=== PATIENT | male | born 1950 | race Caucasian/White ===

== ENCOUNTER 2021-04-04 19:09 | Inpatient (IN) ==
[2021-04-04 20:23] LABS: Basophils # (auto) 0.01 K/uL (0-0.2); Basophils % (auto) 0.2 %; Eosinophils # (auto) 0.27 K/uL (0-0.5); Eosinophils % (auto) 5.1 %; Hemoglobin 14.7 g/dL (14.0-18.0); Immature Granulocytes # (auto) 0.02 K/uL (0.00-0.02); Immature Granulocytes % (auto) 0.4 %; Lymphocytes % (auto) 22.5 %; Mean Corpuscular Hemoglobin 29.9 pg (25-34); Mean Corpuscular Hgb Conc 33.4 g/dL (32-36); Mean Corpuscular Volume 89.6 fL (80-100); Mean Platelet Volume 10.3 fL (7.4-10.4); Monocytes % (auto) 9.4 %; Neutrophils # (auto) 3.34 K/uL (1.4-6.5); Neutrophils % (auto) 62.4 %; Platelet Count 204 K/uL (130-400); RDW Coefficient of Variation 12.9 % (11.5-14.5); RDW Standard Deviation 42.4 fL (36.4-46.3); Red Blood Count 4.91 M/uL (4.7-6.1); White Blood Count 5.34 K/uL (4.8-10.8)
--- NOTE | 2021-04-04 20:27 | CT Scan Report ---
CT head/brain wo con CLINICAL HISTORY: difficulties speaking dx w/ subarachnoid on 03/24 Technique: Contiguous axial CT images of the head were acquired from the base of the skull to the ean vandana without intravenous contrast administration. Images were viewed in brain, subdural and bone windo ws. Automated dose lowering techniques and/or adjustment according to patient size were utilized for this exam. Comparison: None available at the time of this dictation. Findings: There is intermediate density fluid about the bilateral cerebral convexities. No evidence of acute he morrhage is seen. Imaged portions of the paranasal sinuses and mastoid air cells are clear. The orbits appear normal. There are no acute fractures of the calvaria or scalp swelling. Impression: Intermediate density fluid about the bilateral cerebral convexities compatible with subacute subarach noid hemorrhage. ACT 112: Negative or not required by law. Electronically signed by: Brody Skinner M.D. 04/04/2021 8:25 PM
[2021-04-04 20:41] LABS: Partial Thromboplastin Ratio 0.8; Partial Thromboplastin Time 22.2 Seconds (21.0-31.0); Prothrombin Time 10.2 Seconds (9.0-12.0)
[2021-04-04 20:43] LABS: BUN Creatinine Ratio 27.2 (10-20); Creatinine Clr Calc Pharmacy 63.3 ml/min; Est GFR (African American) 73.3 ml/min; Est GFR (Non-African American) 63.2 ml/min; Potassium 4.2 mmol/L (3.5-5.1)
--- NOTE | 2021-04-04 20:46 | XRay Report ---
XR chest 1V portable CLINICAL HISTORY: confusion TECHNIQUE: Single frontal radiograph of the chest was obtained. Comparison: None available at the time of this dictation. FINDINGS: No lines and tubes are seen. The cardiomediastinal silhouette is normal. The lungs are clear. No evid ence of pleural effusion or pneumothorax. IMPRESSION: No acute chest disease. ACT 112: Negative or not required by law. Electronically signed by: Brody Skinner M.D. 04/04/2021 8:45 PM
[2021-04-04 20:53] LABS: Appearance Urine Clear (Clear); Bacteria Urine Automated Negative (Negative); Bilirubin Urine Negative (Negative); Blood Urine Negative (Negative); Color Urine Yellow; Epithelial Cell Urine Auto >30 /lpf (0-5); Glucose Urine UA Negative (Negative); Ketones Urine Negative (Negative); Leukocyte Esterase Urine Negative (Negative); Nitrite Urine Negative (Negative); Protein Urine Trace (Negative); RBC Urine Automated 0-4 /hpf (0-4); Specific Gravity Urine 1.025 (1.000-1.030); Urobilinogen Urine Negative (Negative); pH Urine 6.5 (4.5-7.5)
[2021-04-04] MEDS ORDERED: SODIUM CHLORIDE 0.9% 1000ML 1,000 ML IV STA (21:18)
--- NOTE | 2021-04-04 21:51 | Emergency Department Note ---
History of Present Illness General Chief complaint: Neuro Symptoms/Deficit Stated complaint: NOT HAVING ANY RECALL,MEMORY ISSUES,BLOOD IN BRAIN Time Seen by Provider: 04/04/21 19:51 History of Present Illness Provider complaint: Difficulty speaking confusion Onset (ago): day(s) 1 Maximum Pain Intensity: 0 70-year-old male presents emergency department with for difficulty speaking. reports that the patient has been having difficulty speaking for the last day. Patient's states that he was recently in the hospital in [place] after he suffered a fall and was diagnosed with a brain bleed. She reports no new falls. She reports no fevers. No headaches. No abdominal pain. No chest pain or difficulty breathing. reports that the patient was on Xarelto before he fell and is no longer taking the Xarelto since he was discharged from the hospital in [place] at the beginning of the month. reports she spoke with her PCP at [facility] today Dr. Adrián Gallardo who recommended that the patient come to the emergency department. Home Medications Medication Instructions Recorded Confirmed Type atorvastatin 40 mg tablet 0 mg PO DAILY 04/04/21 04/04/21 History gabapentin 300 mg capsule 0 mg PO DAILY 04/04/21 04/04/21 History levetiracetam 1,000 mg tablet 1,000 mg PO BID 04/04/21 04/04/21 History magnesium oxide 400 mg PO DAILY 04/04/21 04/04/21 History metoprolol succinate 25 mg 25 mg PO DAILY 04/04/21 04/04/21 History tablet,extended release 24 hr relugolix 120 mg tablet 120 mg PO DAILY 04/04/21 04/04/21 History rivaroxaban 20 mg tablet (Xarelto) 20 mg PO DAILY 04/04/21 04/04/21 History vitamin B12 0.5 mg-folic acid 1 mg 1 tab PO DAILY 04/04/21 04/04/21 History tablet Allergies Allergy/AdvReac Type Severity Reaction Status Date / Time adhesive tape Allergy Rash Unverified 04/04/21 21:05 Past Med/Surg History Medical History (Updated 04/04/21 @ 21:51 by Rene Morris) CKD (chronic kidney disease) DVT (deep venous thrombosis) HTN (hypertension) Hyperlipidemia Paroxysmal atrial fibrillation Prostate cancer Seizure Surgical History (Updated 04/04/21 @ 21:44 by Rene Morris) History of tonsillectomy S/P cholecystectomy Family History (Updated 04/04/21 @ 21:44 by Rene Morris) Other Heart disease Social History Smoking Status: Never smoker Feels Safe at Home: Yes Review of Systems A total of 10 systems reviewed and were otherwise negative Physical Exam Vital Signs Vital Signs - 24 hr 04/04/21 19:26 04/04/21 19:45 04/04/21 20:01 Temperature 36.9 C Temperature Source Temporal Artery Scan Pulse Rate 94 H 75 Pulse Rate [Radial] 75 74 Pulse Rhythm Regular Pulse Rhythm [Radial] Regular Regular Pulse Strength [Radial] Normal Normal Respiratory Rate 16 16 16 Respiratory Effort / Characteristics Non-Labored Spontaneous Non-Labored Respiratory Depth Normal Respiratory Pattern Regular Regular Blood Pressure [Right Arm] 154/97 H 146/80 H Blood Pressure Mean [Right Arm] 116 102 Blood Pressure Position [Right Arm] Semi-fowlers Semi-fowlers Pulse Oximetry 95 97 98 Oxygen Delivery Method Room Air Room Air Room Air Sepsis Recent Fever Within 48 Hours No Sepsis New/Unexplained Change in Mental Status No Sepsis Action Taken by Nursing No Action Required 04/04/21 20:41 Temperature Temperature Source Pulse Rate Pulse Rate [Radial] 80 Pulse Rhythm Pulse Rhythm [Radial] Regular Pulse Strength [Radial] Normal Respiratory Rate 16 Respiratory Effort / Characteristics Non-Labored Spontaneous Respiratory Depth Normal Respiratory Pattern Blood Pressure [Right Arm] 148/93 H Blood Pressure Mean [Right Arm] 111 Blood Pressure Position [Right Arm] Semi-fowlers Pulse Oximetry 98 Oxygen Delivery Method Room Air Sepsis Recent Fever Within 48 Hours Sepsis New/Unexplained Change in Mental Status Sepsis Action Taken by Nursing Physical Exam GENERAL: He is oriented to person, place, and time. He appears well-developed and well-nourished. He does not appear distressed. HENT: Exam performed. - Head: Normocephalic and atraumatic. - Right Ear: External ear normal. No mastoid tenderness. - Left Ear: External ear normal. No mastoid tenderness. - Mouth/Throat: The oropharynx is clear and moist. No trismus in the jaw. No dental abscesses or uvula swelling. No oropharyngeal exudate or tonsillar abscesses. EYES: Conjunctivae and EOM are normal. Pupils are equal, round, and reactive to light. Right eye exhibits no discharge. Left eye exhibits no discharge. No scleral icterus. NECK: Normal range of motion. Neck supple. No JVD present. No spinous process tenderness present. No carotid bruit present. No rigidity. No tracheal deviation and normal range of motion present. No Brudzinski's sign and no Kernig's sign noted. CV: Normal rate, regular rhythm, normal heart sounds and intact distal pulses. There is no peripheral edema. Palpable radial pulses bue. PULM/CHEST: Effort normal and breath sounds normal. No respiratory distress. No stridor. He has no wheezes. He has no rales. - Chest Wall: He exhibits no tenderness. ABD: The abdomen is soft. Bowel sounds are normal. He has no distension. No mass is present. There is no tenderness. There is no rebound, no guarding, no Tripathi's sign and no tenderness at McBurney's point. Rovsig negative. MUSC/SKEL: Normal range of motion. There is no peripheral edema, tenderness or deformity. LYMPH: No cervical adenopathy. NEURO: NIHSS: 1 (mild aphasia) SKIN: Skin is warm and dry. He is not diaphoretic. PSYCH: He has a normal mood and affect. Behavior is normal. Judgment and thought content normal. Course Course 1950: The patient was evaluated in room A1. A complete history and physical exam was performed Cardiac monitoring: An order was placed for continuous cardiac monitoring. The monitor shows a rate of 80 with sinusrhythm 2044: Maria Guadalupe house manager was able to access the records from [facility] Patient was seen at [facility] in [facility]. Patient had CAT scan imaging done on March 24 and March 25, 2021. CAT scan of the head done on March 25, 2021 showed a left frontal subdural hemorrhage extending into the left parietal region with 3.2 mm in its greatest with no midline shift. There is minimal left frontal parietal subarachnoid blood which was improved from a CT scan done on March 24, 2021. The CT scan was read at 7:[address] Brumfield. 2100: Vital signs stable. Labs within normal limits. Patient continues to have extremely mild expressive aphasia with no other focal neurological deficits. I contacted radiology Dr. Brody muhammad and discussed with him the CT report from March 25, 2021 and he said the CT scan today with this information is basically the same with its maximal diameter today of about 3 mm. Labs are within normal limits. I did discuss the case with neurology [facility] Dr. Sarkar who states she is worried that the patient could have had a small stroke given his expressive aphasia and recommends that the patient be admitted for to evaluate in the morning and for the patient have an MRI done. and patient are in agreement. Will discuss with [facility] hospitalist Dr. Quintanilla for a dmission. Medical Decision Making Laboratory Data Result diagrams: 04/04/21 19:40 04/04/21 19:40 Lab Results 04/04/21 04/04/21 04/04/21 Range/Units 19:40 19:40 19:40 WBC 5.34 (4.8-10.8) K/uL RBC 4.91 (4.7-6.1) M/uL Hgb 14.7 (14.0-18.0) g/dL Hct 44.0 (42-52) % MCV 89.6 (80-100) fL MCH 29.9 (25-34) pg MCHC 33.4 (32-36) g/dL RDW Std Deviation 42.4 (36.4-46.3) fL RDW Coeff of Valentino 12.9 (11.5-14.5) % Plt Count 204 (130-400) K/uL MPV 10.3 (7.4-10.4) fL Immature Gran % (Auto) 0.4 % Neut % (Auto) 62.4 % Lymph % (Auto) 22.5 % Valley % (Auto) 9.4 % Eos % (Auto) 5.1 % Baso % (Auto) 0.2 % Neut # (Auto) 3.34 (1.4-6.5) K/uL Lymph # (Auto) 1.20 (1.2-3.4) K/uL Valley # (Auto) 0.50 (0.11-0.59) K/uL Eos # (Auto) 0.27 (0-0.5) K/uL Baso # (Auto) 0.01 (0-0.2) K/uL Immature Gran # (Auto) 0.02 (0.00-0.02) K/uL PT 10.2 (9.0-12.0) Seconds INR 1.0 (0.9-1.1) APTT 22.2 (21.0-31.0) Seconds PTT Ratio 0.8 Sodium 139 (136-145) mmol/L Potassium 4.2 (3.5-5.1) mmol/L Chloride 103 (98-107) mmol/L Carbon Dioxide 30 (21-32) mmol/L Anion Gap 6.0 (3-11) BUN 31 H (7-18) mg/dl Creatinine 1.15 (0.6-1.4) mg/dl Est Cr Clr Drug Dosing 63.3 ml/min Est GFR ( Amer) 73.3 ml/min Est GFR (Non-Af Amer) 63.2 ml/min BUN/Creatinine Ratio 27.2 H (10-20) Glucose 155 H (70-99) mg/dl POC Glucose (70-99) mg/dl Calcium 9.0 (8.5-10.1) mg/dl Urine Color Urine Appearance (Clear) Urine pH (4.5-7.5) Ur Specific [place] (1.000-1.030) Urine Protein (Negative) Urine Glucose (UA) (Negative) Urine Ketones (Negative) Urine Blood (Negative) Urine Nitrite (Negative) Urine Bilirubin (Negative) Urine Urobilinogen (Negative) Ur Leukocyte Esterase (Negative) Urine WBC (Auto) (0-5) /hpf Urine RBC (Auto) (0-4) /hpf U Hyaline Cast (Auto) (0-5) /lpf U Epithel Cells (Auto) (0-5) /lpf Urine Bacteria (Auto) (Negative) 04/04/21 04/04/21 Range/Units 20:09 20:30 WBC (4.8-10.8) K/uL RBC (4.7-6.1) M/uL Hgb (14.0-18.0) g/dL Hct (42-52) % MCV (80-100) fL MCH (25-34) pg MCHC (32-36) g/dL RDW Std Deviation (36.4-46.3) fL RDW Coeff of Valentino (11.5-14.5) % Plt Count (130-400) K/uL MPV (7.4-10.4) fL Immature Gran % (Auto) % Neut % (Auto) % Lymph % (Auto) % Valley % (Auto) % Eos % (Auto) % Baso % (Auto) % Neut # (Auto) (1.4-6.5) K/uL Lymph # (Auto) (1.2-3.4) K/uL Valley # (Auto) (0.11-0.59) K/uL Eos # (Auto) (0-0.5) K/uL Baso # (Auto) (0-0.2) K/uL Immature Gran # (Auto) (0.00-0.02) K/uL PT (9.0-12.0) Seconds INR (0.9-1.1) APTT (21.0-31.0) Seconds PTT Ratio Sodium (136-145) mmol/L Potassium (3.5-5.1) mmol/L Chloride (98-107) mmol/L Carbon Dioxide (21-32) mmol/L Anion Gap (3-11) BUN (7-18) mg/dl Creatinine (0.6-1.4) mg/dl Est Cr Clr Drug Dosing ml/min Est GFR ( Amer) ml/min Est GFR (Non-Af Amer) ml/min BUN/Creatinine Ratio (10-20) Glucose (70-99) mg/dl POC Glucose 132 H (70-99) mg/dl Calcium (8.5-10.1) mg/dl Urine Color Yellow Urine Appearance Clear (Clear) Urine pH 6.5 (4.5-7.5) Ur Specific [place] 1.025 (1.000-1.030) Urine Protein Trace H (Negative) Urine Glucose (UA) Negative (Negative) Urine Ketones Negative (Negative) Urine Blood Negative (Negative) Urine Nitrite Negative (Negative) Urine Bilirubin Negative (Negative) Urine Urobilinogen Negative (Negative) Ur Leukocyte Esterase Negative (Negative) Urine WBC (Auto) 1-5 (0-5) /hpf Urine RBC (Auto) 0-4 (0-4) /hpf U Hyaline Cast (Auto) 1-5 (0-5) /lpf U Epithel Cells (Auto) >30 H (0-5) /lpf Urine Bacteria (Auto) Negative (Negative) Imaging Data Radiologist's Impression: Head CT 04/04/21 20:01 CT head/brain wo con CLINICAL HISTORY: difficulties speaking dx w/ subarachnoid on 03/24 Technique: Contiguous axial CT images of the head were acquired from the base of the skull to the vertex without intravenous contrast administration. Images were viewed in brain, subdural and bone windows. Automated dose lowering techniques and/or adjustment according to patient size were utilized for this exam. Comparison: None available at the time of this dictation. Findings: There is intermediate density fluid about the bilateral cerebral convexities. No evidence of acute hemorrhage is seen. Imaged portions of the paranasal sinuses and mastoid air cells are clear. The orbits appear normal. There are no acute fractures of the calvaria or scalp swelling. Impression: Intermediate density fluid about the bilateral cerebral convexities compatible with subacute subarachnoid hemorrhage. ACT 112: Negative or not required by law. Electronically signed by: Brody Skinner M.D. 04/04/2021 8:25 PM Chest X-Ray 04/04/21 20:02 XR chest 1V portable CLINICAL HISTORY: confusion TECHNIQUE: Single frontal radiograph of the chest was obtained. Comparison: None available at the time of this dictation. FINDINGS: No lines and tubes are seen. The cardiomediastinal silhouette is normal. The lungs are clear. No evidence of pleural effusion or pneumothorax. IMPRESSION: No acute chest disease. ACT 112: Negative or not required by law. Electronically signed by: Brody Skinner M.D. 04/04/2021 8:45 PM ECG Data Indication: + weakness Rate (beats per minute): 79 Rhythm: + normal sinus ECG Intervals/blocks: + First degree AV block, + Right Bundle branch block, + Normal QRS and + Normal QT-c ECG ST segments: + Normal ST segments [facility] Narrative 1950: The patient was evaluated in room A1. A complete history and physical exam was performed Cardiac monitoring: An order was placed for continuous cardiac monitoring. The monitor shows a rate of 80 with sinusrhythm 2044: Maria Guadalupe house manager was able to access the records from [facility] Patient was seen at [facility] in [facility]. Patient had CAT scan imaging done on March 24 and March 25, 2021. CAT scan of the head done on March 25, 2021 showed a left frontal subdural hemorrhage extending into the left parietal region with 3.2 mm in its greatest with no midline shift. There is minimal left frontal parietal subarachnoid blood which was improved from a CT scan done on March 24, 2021. The CT scan was read at 7:[address] Brumfield. 2100: Vital signs stable. Labs within normal limits. Patient continues to have extremely mild expressive aphasia with no other focal neurological deficits. I contacted radiology Dr. Skinner radiology and discussed with him the CT report from March 25, 2021 and he said the CT scan today with this information is basically the same with its maximal diameter today of about 3 mm. Labs are within normal limits. I [facility] who states she is worried that the patient could have had a small stroke given his expressive aphasia and recommends that the patient be admitted for to evaluate in the morning and for the patient have an MRI done. and patient are in agreement. Will discuss with [facility] hospitalist Dr. Quintanilla for admission. Impression & Plan Expressive aphasia Discharge Plan Visit Data Chief Complaint: Neuro Symptoms/Deficit Stated Complaint: NOT HAVING ANY RECALL,MEMORY ISSUES,BLOOD IN BRAIN Discharge Problem: Expressive aphasia Patient Disposition: Admitted As Inpatient Forms Stand Alone Forms: My [facility] Prescriptions Prescriptions: No Action atorvastatin 40 mg tablet 0 mg PO DAILY RF: 0 levetiracetam 1,000 mg tablet 1,000 mg PO BID RF: 0 gabapentin 300 mg capsule 0 mg PO DAILY RF: 0 Xarelto 20 mg tablet 20 mg PO DAILY RF: 0 magnesium oxide 400 mg magnesium tablet 400 mg PO DAILY RF: 0 metoprolol succinate 25 mg tablet extended release 24 hr 25 mg PO DAILY RF: 0 vitamin Y83-digte acid 0.5-1 mg Tablet 1 tab PO DAILY RF: 0 relugolix 120 mg Tablet 120 mg PO DAILY RF: 0 Referrals Referrals: Taylor Live MD [Primary Care Provider] -
[2021-04-04 21:57] LABS: Albumin Level 3.4 gm/dl (3.4-5.0); Bilirubin Direct 0.2 mg/dl (0-0.2); Bilirubin,Total 0.7 mg/dl (0.2-1); Magnesium 2.5 mg/dl (1.8-2.4); Thyroid Stimulating Hormone 2.43 uIu/ml (0.300-4.500)
--- NOTE | 2021-04-04 22:59 | History & Physical Report ---
Date of Service April 04, 2021 Assessment & Plan (1) Expressive aphasia: Plan: Recent traumatic ICH Rule out new CVA hx TIA as per records hx PAF, anticoagulation currently on hold following recent traumatic intracranial hemorrhage hypertension, secondary to above Hyperlipidemia on statin Rx seizure disorder secondary to cerebral venous sinus thrombosis as per records, well-controlled as per patient hx DVT as per records prostatic cancer status post surgery on Relugolix prediabetes, hemoglobin A1c of 21 February 2021 OBS Medical telemetry Neurochecks Neurology consult Re: Worsening aphasia (ER provider already in touch with Dr. Sarkar who recommends MRI study to rule out ischemic/embolic stroke) MRI/MRA of the brain Additional stroke work-up pending MRI results Permissive hypertension until acute stroke ruled out DVT prophylaxis. SCDs Re: Recent ICH Full code Patient's requesting update providers. Hali Archer, contact #[phone]. Text document was generated using [employer] voice recognition software. It may contain grammatical or spelling errors. Kindly contact undersigned for clarification of any documentation item in question. History of Present Illness Chief Complaint: Worsening difficulty with speaking Primary Care Provider: Dr. Borjas History obtained from patient and records. Medical history significant for hypertension, PAF currently not on anticoagulation due to recent traumatic subdural hematoma/SAH, seizure disorder secondary to cerebral venous sinus thrombosis as per records, history of DVT as per records, prostatic cancer status post surgery on Relugolix, prediabetes. Patient confined at [facility] in [place], [place] from March 24-2020 for traumatic intraparenchymal hemorrhage, left posterior parietal subarachnoid hemorrhage, left frontal parietal subdural hematoma. Patient on Eliquis for A. fib at time of injury. Patient visiting [place] that time for a football game. No neurosurgical intervention. Post injury, patient noted trouble getting words out. No arm or leg weakness as per patient. Repeat CT head recommended after 1 week. PCP may resume patient anticoagulation for A. fib if ICH stable on repeat CT head as per discharge documentation. Patient seen at PCPs office on follow-up visit 2 days ago. Outpatient Neurology referral contemplated. Today, patient had worsening trouble getting words out. Patient denies headache symptoms. No chest pain, no S OB. Patient directed to ER by PCP. Medical History as above Surgical History : Cataract surgery, cholecystostomy, prostatectomy, tonsillectomy, vasectomy Family History : Heart disease Personal/Social history : Non-smoker, occasional EtOH intake, retired fund accountant Allergies Allergy/AdvReac Type Severity Reaction Status Date / Time adhesive tape Allergy Rash Unverified 04/04/21 21:05 Home Medications Medication Instructions Recorded Confirmed Type atorvastatin 40 mg tablet 40 mg PO [id number] 04/04/21 04/04/21 History calcium carbonate 600 mg (1,500 1 tab PO DAILY 04/04/21 04/04/21 History mg)-vitamin D3 200 unit tablet gabapentin 300 mg capsule 300 mg PO AMPM 04/04/21 04/04/21 History levetiracetam 1,000 mg tablet 1,000 mg PO BID 04/04/21 04/04/21 History magnesium oxide 400 mg PO DAILY 04/04/21 04/04/21 History metoprolol succinate 25 mg 25 mg PO DAILY 04/04/21 04/04/21 History tablet,extended release 24 hr relugolix 120 mg tablet 120 mg PO DAILY 04/04/21 04/04/21 History vitamin B12 0.5 mg-folic acid 1 mg 1 tab PO DAILY 04/04/21 04/04/21 History tablet Past Med/Surg History Medical History (Updated 04/04/21 @ 21:51 by Rene Morris) CKD (chronic kidney disease) DVT (deep venous thrombosis) HTN (hypertension) Hyperlipidemia Paroxysmal atrial fibrillation Prostate cancer Seizure Surgical History (Updated 04/04/21 @ 21:44 by Rene Morris) History of tonsillectomy S/P cholecystectomy Family History (Updated 04/04/21 @ 21:44 by Rene Morris) Other Heart disease Social History Smoking Status: Never smoker Hx Alcohol Use: Yes Hx Substance Use: No Preferred Language: Palauan Communication Ability: Impaired Water Analyst Required: Yes Beliefs That Will Affect Care: None Current Living Situation: Spouse Feels Safe at Home: Yes Safety Concerns: Feels Safe At This Time Assistive Devices: Cane and Hearing Aid - Bilateral Review of Systems Review of Systems: As per HPI, all 10 systems reviewed, all other ROS negative Physical Exam Physical Exam: GENERAL: Comfortable, pleasant, intermittent pauses during speech to find words, no respiratory distress SKIN: Normal color, warm HEENT: [place] palpebral conjunctivae, no ptosis, dry buccal mucosa NECK : Supple, no tenderness CHEST : CTA, no tenderness HEART : RRR, no obvious murmurs ABDOMEN: Some distention, nontender EXTREMITIES : No LE swelling/tenderness, no other conspicuous deformities noted NEUROLOGIC : Coherent, word finding difficulty during speech, no facial asymmetry, no other gross focality Results & Data Results & Data ([facility]) Vital Signs (Past 12 Hours) Vital Signs Temp Pulse Pulse Resp BP Pulse Ox 04/04/21 22:00 70 16 164/88 H 97 04/04/21 20:41 80 16 148/93 H 98 04/04/21 20:01 74 16 146/80 H 98 04/04/21 19:45 75 75 16 154/97 H 97 04/04/21 19:26 36.9 C 94 H 16 95 Laboratory Results Laboratory Results WBC 5.34 K/uL (4.8-10.8) 04/04/21 19:40 RBC 4.91 M/uL (4.7-6.1) 04/04/21 19:40 Hgb 14.7 g/dL (14.0-18.0) 04/04/21 19:40 Hct 44.0 % (42-52) 04/04/21 19:40 MCV 89.6 fL (80-100) 04/04/21 19:40 MCH 29.9 pg (25-34) 04/04/21 19:40 MCHC 33.4 g/dL (32-36) 04/04/21 19:40 RDW Std Deviation 42.4 fL (36.4-46.3) 04/04/21 19:40 RDW Coeff of Valentino 12.9 % (11.5-14.5) 04/04/21 19:40 Plt Count 204 K/uL (130-400) 04/04/21 19:40 MPV 10.3 fL (7.4-10.4) 04/04/21 19:40 Immature Gran % (Auto) 0.4 % 04/04/21 19:40 Neut % (Auto) 62.4 % 04/04/21 19:40 Lymph % (Auto) 22.5 % 04/04/21 19:40 [place] % (Auto) 9.4 % 04/04/21 19:40 Eos % (Auto) 5.1 % 04/04/21 19:40 Baso % (Auto) 0.2 % 04/04/21 19:40 Neut # (Auto) 3.34 K/uL (1.4-6.5) 04/04/21 19:40 Lymph # (Auto) 1.20 K/uL (1.2-3.4) 04/04/21 19:40 [place] # (Auto) 0.50 K/uL (0.11-0.59) 04/04/21 19:40 Eos # (Auto) 0.27 K/uL (0-0.5) 04/04/21 19:40 Baso # (Auto) 0.01 K/uL (0-0.2) 04/04/21 19:40 Immature Gran # (Auto) 0.02 K/uL (0.00-0.02) 04/04/21 19:40 PT 10.2 Seconds (9.0-12.0) 04/04/21 19:40 INR 1.0 (0.9-1.1) 04/04/21 19:40 APTT 22.2 Seconds (21.0-31.0) 04/04/21 19:40 PTT Ratio 0.8 04/04/21 19:40 Sodium 139 mmol/L (136-145) 04/04/21 19:40 Potassium 4.2 mmol/L (3.5-5.1) 04/04/21 19:40 Chloride 103 mmol/L (98-107) 04/04/21 19:40 Carbon Dioxide 30 mmol/L (21-32) 04/04/21 19:40 Anion Gap 6.0 (3-11) 04/04/21 19:40 BUN 31 mg/dl (7-18) H 04/04/21 19:40 Creatinine 1.15 mg/dl (0.6-1.4) 04/04/21 19:40 Est Cr Clr Drug Dosing 63.3 ml/min 04/04/21 19:40 Est GFR ( Amer) 73.3 ml/min 04/04/21 19:40 Est GFR (Non-Af Amer) 63.2 ml/min 04/04/21 19:40 BUN/Creatinine Ratio 27.2 (10-20) H 04/04/21 19:40 Glucose 155 mg/dl (70-99) H 04/04/21 19:40 POC Glucose 132 mg/dl (70-99) H 04/04/21 20:09 Calcium 9.0 mg/dl (8.5-10.1) 04/04/21 19:40 Magnesium 2.5 mg/dl (1.8-2.4) H 04/04/21 19:40 Total Bilirubin 0.7 mg/dl (0.2-1) 04/04/21 19:40 Direct Bilirubin 0.2 mg/dl (0-0.2) 04/04/21 19:40 AST 23 U/L (15-37) 04/04/21 19:40 ALT 33 U/L (12-78) 04/04/21 19:40 Alkaline Phosphatase 87 U/L (45-117) 04/04/21 19:40 Total Protein 7.0 gm/dl (6.4-8.2) 04/04/21 19:40 Albumin 3.4 gm/dl (3.4-5.0) 04/04/21 19:40 TSH 2.430 uIu/ml (0.300-4.500) 04/04/21 19:40 Urine Color Yellow 04/04/21 20:30 Urine Appearance Clear (Clear) 04/04/21 20:30 Urine pH 6.5 (4.5-7.5) 04/04/21 20:30 Ur Specific [place] 1.025 (1.000-1.030) 04/04/21 20:30 Urine Protein Trace (Negative) H 04/04/21 20:30 Urine Glucose (UA) Negative (Negative) 04/04/21 20:30 Urine Ketones Negative (Negative) 04/04/21 20:30 Urine Blood Negative (Negative) 04/04/21 20:30 Urine Nitrite Negative (Negative) 04/04/21 20:30 Urine Bilirubin Negative (Negative) 04/04/21 20:30 Urine Urobilinogen Negative (Negative) 04/04/21 20:30 Ur Leukocyte Esterase Negative (Negative) 04/04/21 20:30 Urine WBC (Auto) 1-5 /hpf (0-5) 04/04/21 20:30 Urine RBC (Auto) 0-4 /hpf (0-4) 04/04/21 20:30 U Hyaline Cast (Auto) 1-5 /lpf (0-5) 04/04/21 20:30 U Epithel Cells (Auto) >30 /lpf (0-5) H 04/04/21 20:30 Urine Bacteria (Auto) Negative (Negative) 04/04/21 20:30 COVID-19 Eval Order Cancelled 04/04/21 21:35 COVID-19 Eval Order Covid19 at [facility] 04/04/21 21:[address] 04/04/21 20:01 CT head/brain wo con CLINICAL HISTORY: difficulties speaking dx w/ subarachnoid on 03/24 Technique: Contiguous axial CT images of the head were acquired from the base of the skull to the vertex without intravenous contrast administration. Images were viewed in brain, subdural and bone windows. Automated dose lowering techniques and/or adjustment according to patient size were utilized for this exam. Comparison: None available at the time of this dictation. Findings: There is intermediate density fluid about the bilateral cerebral convexities. No evidence of acute hemorrhage is seen. Imaged portions of the paranasal sinuses and mastoid air cells are clear. The orbits appear normal. There are no acute fractures of the calvaria or scalp swelling. Impression: Intermediate density fluid about the bilateral cerebral convexities compatible with subacute subarachnoid hemorrhage. ACT 112: Negative or not required by law. Electronically signed by: Brody Skinner M.D. 04/04/2021 8:25 PM Chest X-Ray 04/04/21 20:02 XR chest 1V portable CLINICAL HISTORY: confusion TECHNIQUE: Single frontal radiograph of the chest was obtained. Comparison: None available at the time of this dictation. FINDINGS: No lines and tubes are seen. The cardiomediastinal silhouette is normal. The lungs are clear. No evidence of pleural effusion or pneumothorax. IMPRESSION: No acute chest disease. ACT 112: Negative or not required by law. Electronically signed by: Brody Skinner M.D. 04/04/2021 8:45 PM Diagnostic Findings EKG as per my interpretation: Rate 80, NSR, incomplete RBBB, 1 AVB, normal axis, no ischemia
[2021-04-04] MEDS: levETIRAcetam 500 MG TAB PO SCH (23:58)
[2021-04-05] MEDS ORDERED: ACETAMINOPHEN 325 MG TAB PO PRN (00:32)
[2021-04-05] MEDS ORDERED: PROMETHAZINE HCL 6.25 MG in SODIUM CHLORIDE 0.9% 50 ML IV PRN (00:32)
[2021-04-05] MEDS: GABAPENTIN 300 MG CAP PO SCH ×3 (03:33→21:23)
[2021-04-05 06:09] LABS: Basophils # (auto) 0.01 K/uL (0-0.2); Basophils % (auto) 0.2 %; Eosinophils # (auto) 0.22 K/uL (0-0.5); Eosinophils % (auto) 4.3 %; Hematocrit (blood only) 38.3 % (42-52); Hemoglobin 12.7 g/dL (14.0-18.0); Immature Granulocytes # (auto) 0.02 K/uL (0.00-0.02); Immature Granulocytes % (auto) 0.4 %; Lymphocytes % (auto) 21.7 %; Mean Corpuscular Hemoglobin 29.9 pg (25-34); Mean Corpuscular Hgb Conc 33.2 g/dL (32-36); Mean Corpuscular Volume 90.1 fL (80-100); Mean Platelet Volume 10.2 fL (7.4-10.4); Monocytes # (auto) 0.42 K/uL (0.11-0.59); Monocytes % (auto) 8.3 %; Neutrophils # (auto) 3.31 K/uL (1.4-6.5); Neutrophils % (auto) 65.1 %; Platelet Count 153 K/uL (130-400); RDW Coefficient of Variation 12.8 % (11.5-14.5); RDW Standard Deviation 42.6 fL (36.4-46.3); Red Blood Count 4.25 M/uL (4.7-6.1); White Blood Count 5.08 K/uL (4.8-10.8)
[2021-04-05 06:41] LABS: Calcium 7.3 mg/dl (8.5-10.1); Creatinine Clr Calc Pharmacy 94.4 ml/min; Est GFR (African American) 105.1 ml/min; Est GFR (Non-African American) 90.7 ml/min; Potassium 3.4 mmol/L (3.5-5.1)
[2021-04-05] MEDS ORDERED: POTASSIUM CHLORIDE CRTAB 20 MEQ TABCR PO ONE (07:53)
--- NOTE | 2021-04-05 08:07 | Magnetic Resonance Report ---
MR brain wo con, MR angio head wo con HISTORY: 70 years-old Male aphasia, acute headache with aphasia. COMPARISON: Head CT 04/04/2021. TECHNIQUE: Multiplanar and multisequence MRI of the brain was obtained without the use of IV contrast . MRA of the head without the use of IV contrast was obtained utilizing 3-D [id number] sequencing with MIP reformats. All measurements were obtained according to NASCET criteria. FINDINGS: MRI BRAIN: The linesperson localizer images demonstrate no gross extracranial abnormality. There is no restricted diff usion to suggest acute infarct. Small areas of subcortical increased diffusion-weighted signal noted within the left temporal and occipital lobes. Small amount of acute to subacute subarachnoid hemorrha ge is noted within the left temporal and occipital lobes. The largest area of increased T1 signal wit hin the left temporal lobe measures up to 1.8 cm. Bilateral subacute to chronic subdural hematomas me asure up to 8 mm on the left and 7 mm on the right. No midline shift or significant mass effect. No i ntra-axial hemorrhage, hydrocephalus or intra-axial mass. Chronic lacunar infarcts of the cerebellum. Age-related involutional changes. Mild to moderate scatte red T2/FLAIR hyperintensities throughout the white matter suggest chronic microvascular ischemic dise ase. The cerebral venous sinuses and major arterial flow voids are patent. Trace mastoid effusions. M ild mucosal thickening of the paranasal sinuses. The skull and soft tissues are unremarkable. Prior b ilateral lens repair. MRA: The imaged internal carotid arteries are widely patent. The middle and anterior cerebral arteries are widely patent. Dominant right vertebral artery with diminutive distal left vertebral artery. The bas ilar and posterior cerebral arteries are patent. origin of the right posterior cerebral artery. IMPRESSION: 1. Areas of probable subacute infarct within the left temporal and occipital lobes with areas of asso ciated laminar necrosis versus small amount of subarachnoid hemorrhage. 2. Subcentimeter subacute to chronic appearing bilateral subdural hematomas. No midline shift, hydroc ephalus or significant mass effect. 3. Age-related involutional changes with chronic microvascular ischemic disease. 4. Unremarkable MRA. ACT 112: Negative or not required by law. The above report was generated using voice recognition software. It may contain grammatical, syntax o r spelling errors. Dictated: 04/05/2021 6:54 AM Transcribed: 04/05/2021 7:36 AM Kathya [id number] PAULIE_Cate Electronically signed by: Jose Cortez M.D. 04/05/2021 8:05 AM
--- NOTE | 2021-04-05 08:07 | Magnetic Resonance Report ---
MR brain wo con, MR angio head wo con HISTORY: 70 years-old Male aphasia, acute headache with aphasia. COMPARISON: Head CT 04/04/2021. TECHNIQUE: Multiplanar and multisequence MRI of the brain was obtained without the use of IV contrast . MRA of the head without the use of IV contrast was obtained utilizing 3-D [id number] sequencing with MIP reformats. All measurements were obtained according to NASCET criteria. FINDINGS: MRI BRAIN: The solar energy advisor localizer images demonstrate no gross extracranial abnormality. There is no restricted diff usion to suggest acute infarct. Small areas of subcortical increased diffusion-weighted signal noted within the left temporal and occipital lobes. Small amount of acute to subacute subarachnoid hemorrha ge is noted within the left temporal and occipital lobes. The largest area of increased T1 signal wit hin the left temporal lobe measures up to 1.8 cm. Bilateral subacute to chronic subdural hematomas me asure up to 8 mm on the left and 7 mm on the right. No midline shift or significant mass effect. No i ntra-axial hemorrhage, hydrocephalus or intra-axial mass. Chronic lacunar infarcts of the cerebellum. Age-related involutional changes. Mild to moderate scatte red T2/FLAIR hyperintensities throughout the white matter suggest chronic microvascular ischemic dise ase. The cerebral venous sinuses and major arterial flow voids are patent. Trace mastoid effusions. M ild mucosal thickening of the paranasal sinuses. The skull and soft tissues are unremarkable. Prior b ilateral lens repair. MRA: The imaged internal carotid arteries are widely patent. The middle and anterior cerebral arteries are widely patent. Dominant right vertebral artery with diminutive distal left vertebral artery. The bas ilar and posterior cerebral arteries are patent. origin of the right posterior cerebral artery. IMPRESSION: 1. Areas of probable subacute infarct within the left temporal and occipital lobes with areas of asso ciated laminar necrosis versus small amount of subarachnoid hemorrhage. 2. Subcentimeter subacute to chronic appearing bilateral subdural hematomas. No midline shift, hydroc ephalus or significant mass effect. 3. Age-related involutional changes with chronic microvascular ischemic disease. 4. Unremarkable MRA. ACT 112: Negative or not required by law. The above report was generated using voice recognition software. It may contain grammatical, syntax o r spelling errors. Dictated: 04/05/2021 6:54 AM Transcribed: 04/05/2021 7:36 AM Kathya [id number] PAULIE_Cate Electronically signed by: Jose Cortez M.D. 04/05/2021 8:05 AM
[2021-04-05] MEDS ORDERED: NON-FORMULARY MEDICATION (Vitamin B12-Folic Acid 0.5-1 mg Tablet) PO SCH (09:00)
[2021-04-05] MEDS: ATORVASTATIN 40 MG TAB PO SCH (09:16)
[2021-04-05] MEDS: levETIRAcetam 500 MG TAB PO SCH ×2 (09:16→21:25)
--- NOTE | 2021-04-05 09:18 | Electrocardiogram Report ---
Test Reason : Blood Pressure : / mmHG Vent. Rate : 079 BPM Atrial Rate : 079 BPM P-R Int : 220 ms QRS Dur : 118 ms QT Int : 414 ms P-R-T Axes : 020 001 054 degrees QTc Int : 474 ms Sinus rhythm with 1st degree A-V block Incomplete right bundle branch block Borderline ECG No previous ECGs available Confirmed by Jose Thorpe ([id number]) on 04/05/2021 9:17:29 AM Referred By: REFERRED SELF Confirmed By:Jose Thorpe
--- NOTE | 2021-04-05 12:33 | Neurology Consultation ---
Date of Consultation April 05, 2021 Assessment & Plan (1) Expressive aphasia: 1. MRI with no acute findings 2. CT - subacute SAH, and chronic SDH 3. MRA - unremarkable 4. MRV r/o venous thrombosis 5. EEG- r/o seizure focus 6. continue Keppra 1g q 12 hours for now 7. MRV- was negative for acute thrombus with hold Xarelto for additional 2 weeks then restart (2) Paroxysmal atrial fibrillation: 1. previously on Xarelto 20 mg daily Supervising Physician Co-Signing Physician Notes I have seen and discussed above patient with Dr Taylor Live, neurology. Patient seen and examined patient is known to me. I reviewed his images and his history as well as his hospital visit in [place] from about 10 days ago. 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 The patient had one generalized seizure at the time of the dural venous thrombosis and remains on Keppra. He never had anything other than a generalized seizure never had any partial seizures or partial complex seizures. Patient fell possibly related to syncope at a football game. He remembers feeling lightheaded and falling. If he lost consciousness he was out for a minute or 2. Thereafter he had a headache. Due to his anticoagulation status he was brought to a local hospital where CT of the head showed bilateral subdurals and subarachnoid hemorrhage. He was managed expectantly he was taken off his anticoagulants and I believe they gave him vitamin K. While hospitalized and for the first several days thereafter he had expressive language dysfunction which improved after he was home for several days. 2 days ago he began having more difficulty with word finding. No change in the headache which is gradually reduced and remains over the left hemicranium. No new visual symptoms no facial droop no dysarthria no unilateral weakness or numbness. No focal seizure activity staring spells have been noted. His MRI was read out at our facility is showing acute infarctions in the left temporal and occipital lobe with laminar necrosis versus subarachnoid hemorrhage. His CT of the head showed residual subarachnoid hemorrhage MRV showed chronic venous sinus thrombosis without acute thrombosis and MRA was noncontributory. I had vascular neurology at [place] review the imaging. Dr. May. He felt that the diffusion-weighted abnormality was more consistent with subarachnoid hemorrhage. He recommended a the MRV and if it showed an acute sinus thrombosis starting Xarelto and if not waiting another 2 weeks for anticoagulation therapy. He also recommended an EEG to rule out subclinical seizure The patient is awake alert he is oriented x3 he has some minor hesitancy of naming and is perseverative occasionally. His repetitions are normal and three- step commands are normal. There is no right left confusion. His pupils are equal no papilledema normal ramirez motility facial symmetry. His neck is supple. Motor 5 out of 5 does appear to have some distal atrophy in the hands and feet. Symmetric reflexes downgoing toes. [id number] and [id number] are normal sensation is intact to light touch and graphesthesia Impression this is a patient who is chronically on anticoagulants for atrial fibrillation and venous sinus thrombosis with secondary seizure disorder. The patient fell and had subarachnoid hemorrhage and I believe since subdural hematoma as well which was managed expectantly. Patient had some language dysfunction which improved and resolved but then recurred. I suspect this is from the irritative effect of blood in the subarachnoid space. We will perform an EEG to rule out intermittent spikes suggestive of seizure. If so we would increase the dose of Keppra. Do not see any evidence of alteration of consciousness to suggest that he would be having partial complex seizures. Recommend carotid ultrasound for completion. Dr. Lopez and Taylor Bellamy will follow with you Taylor Live MD History of Present Illness Reason for Consultation: expressive aphasia Requesting Physician: Kieran Wilkes MD Attending Physician: Kieran Wilkes MD History of Present Illness Kal is a 70 year old male presents [facility] ED with for difficulty speaking. reports that the patient has been having difficulty speaking for the last day. His states that he was recently in the hospital in [place] after he suffered a fall and was diagnosed with a brain bleed. She reports no new falls. She reports no fevers. No headaches. No abdominal pain. No chest pain or difficulty breathing. reports that the he was on Xarelto before he fell and is no longer taking the Xarelto since he was discharged from the hospital in [place] at the beginning of the month. reports she spoke with her PCP at [facility] today Dr. Borjas who recommended that the he come to [facility] for evaluation. He is doing better today but still having some interruption of speech with some words. discussed MRV and EEG recommendation. they agree with the plan. denies CP, SOB, abdominal pain, one sided weakness, numbness tingling. Allergies Allergy/AdvReac Type Severity Reaction Status Date / Time adhesive tape Allergy Rash Unverified 04/04/21 21:05 Home Medications Medication Instructions Recorded Confirmed Type atorvastatin 40 mg tablet 40 mg PO [id number] 04/04/21 04/04/21 History calcium carbonate 600 mg (1,500 1 tab PO DAILY 04/04/21 04/04/21 History mg)-vitamin D3 200 unit tablet gabapentin 300 mg capsule 300 mg PO AMPM 04/04/21 04/04/21 History levetiracetam 1,000 mg tablet 1,000 mg PO BID 04/04/21 04/04/21 History magnesium oxide 400 mg PO DAILY 04/04/21 04/04/21 History metoprolol succinate 25 mg 25 mg PO DAILY 04/04/21 04/04/21 History tablet,extended release 24 hr relugolix 120 mg tablet 120 mg PO DAILY 04/04/21 04/04/21 History vitamin B12 0.5 mg-folic acid 1 mg 1 tab PO DAILY 04/04/21 04/04/21 History tablet Patient History Medical History (Updated 04/04/21 @ 21:51 by Rene Morris) CKD (chronic kidney disease) DVT (deep venous thrombosis) HTN (hypertension) Hyperlipidemia Paroxysmal atrial fibrillation Prostate cancer Seizure Surgical History (Updated 04/04/21 @ 21:44 by Rene Morris) History of tonsillectomy S/P cholecystectomy Family History (Updated 04/04/21 @ 21:44 by Rene Morris) Other Heart disease Social History Smoking Status: Never smoker Hx Alcohol Use: Yes Hx Substance Use: No Preferred Language: Ukrainian Communication Ability: Impaired Psychologist Chief Required: Yes Beliefs That Will Affect Care: None Current Living Situation: Spouse Feels Safe at Home: Yes Safety Concerns: Feels Safe At This Time Assistive Devices: Cane and Hearing Aid - Bilateral Review of Systems 2 Review of Systems: All systems reviewed & are unremarkable except as noted in HPI & below Physical Exam Physical Exam: Physical Exam: Constitutional: appearance nourished, healthy and thin Ears, Nose, Mouth and Throat: mucous membranes moist, no injection and skin normal, eyes normal Cardiovascular:irregular Respiratory: clear to auscultation (CTA) and no rales, ronchi or wheeze Musculoskeletal: no peripheral edema and good distal pulses Skin: no stigmata of neurocutaneous disease noted and normal and intact Eyes: extraocular muscles intact (EOMI) and pupils equal, round and reactive to light (PERRL) NEUROLOGIC EXAMINATION: Mental status: Alert and interactive Oriented to full date and location Oriented to person Speech expressive aphasia Cranial Nerves smile eye brow raise symmetric Reflexes: Deep tendon reflexes were decreased in LE sensory: intact to light and cool touch Coordination: finger to nose Gait/Stance: Posture normal. Gait not assessed Motor: Negative for pronator drift of out stretched arms with eyes closed. 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 5/5 bilaterally, hip flex patellar,plantar flex ext 5/5 Results & Data ([facility]) Vital Signs (Past 12 Hours) Vital Signs Temp Pulse Resp BP Pulse Ox 04/05/21 12:23 83 16 140/87 96 04/05/21 08:56 81 21 136/75 97 04/05/21 03:00 36.2 C L 74 15 151/105 H 98 04/05/21 02:05 69 17 170/89 H 96 Laboratory Results Abnormal lab results 04/04/21 04/04/21 04/04/21 Range/Units 19:40 19:40 20:09 RBC (4.7-6.1) M/uL Hgb (14.0-18.0) g/dL Hct (42-52) % Lymph # (Auto) (1.2-3.4) K/uL Potassium (3.5-5.1) mmol/L Chloride (98-107) mmol/L BUN 31 H (7-18) mg/dl BUN/Creatinine Ratio 27.2 H (10-20) Glucose 155 H (70-99) mg/dl POC Glucose 132 H (70-99) mg/dl Calcium (8.5-10.1) mg/dl Magnesium 2.5 H (1.8-2.4) mg/dl Urine Protein (Negative) U Epithel Cells (Auto) (0-5) /lpf 04/04/21 04/05/21 04/05/21 Range/Units 20:30 05:43 05:43 RBC 4.25 L (4.7-6.1) M/uL Hgb 12.7 L (14.0-18.0) g/dL Hct 38.3 L (42-52) % Lymph # (Auto) 1.10 L (1.2-3.4) K/uL Potassium 3.4 L D (3.5-5.1) mmol/L Chloride 112 H (98-107) mmol/L BUN 22 H (7-18) mg/dl BUN/Creatinine Ratio 29.0 H (10-20) Glucose 100 H (70-99) mg/dl POC Glucose (70-99) mg/dl Calcium 7.3 L D (8.5-10.1) mg/dl Magnesium (1.8-2.4) mg/dl Urine Protein Trace H (Negative) U Epithel Cells (Auto) >30 H (0-5) /lpf Diagnostic Findings MRI/MRA-Areas of probable subacute infarct within the left temporal and occipital lobes with areas of associated laminar necrosis versus small amount of subarachnoid hemorrhage. Subcentimeter subacute to chronic appearing bilateral subdural hematomas. No midline shift, hydrocephalus or significant mass effect. Age-related involutional changes with chronic microvascular ischemic disease. Unremarkable MRA. CT head-intermediate density fluid about the bilateral cerebral convexities compatible with subacute subarachnoid hemorrhage. MRV-No acute cerebral venous sinus thrombus identified. Hypoplastic versus chronically thrombosed right transverse and superior sagittal sinuses.
--- NOTE | 2021-04-05 16:11 | Magnetic Resonance Report ---
MR venography head wo con HISTORY: 70 years-old Male r/o venous thrombosis acute headache with aphasia COMPARISON: Brain MRI of same day TECHNIQUE: MRV of the head was obtained without the use of IV contrast. 3-D coronal and sagittal MIPS were submitted for review. FINDINGS: Collateral venous vessels of the scalp. No significant flow identified within the superior sagittal s inus and medial aspect of the right transverse sinus. Correlating these findings with the MRI of same day there is no acute sinus thrombus identified. Bilateral subdural collections are better seen on t he brain MRI study of same day. Addition to the left temporal lobe laminar necrosis versus subarachno id hemorrhage. IMPRESSION: 1. No acute cerebral venous sinus thrombus identified. 2. Hypoplastic versus chronically thrombosed right transverse and superior sagittal sinuses. ACT 112: Negative or not required by law. The above report was generated using voice recognition software. It may contain grammatical, syntax o r spelling errors. Electronically signed by: Jose Cortez M.D. 04/05/2021 4:09 PM
--- NOTE | 2021-04-05 17:12 | Hospitalist Progress Note ---
Date of Service April 05, 2021 Assessment & Plan (1) Expressive aphasia: Plan: Strokelike symptoms Presented with expressive aphasia H/O Subdural hematoma secondary to fall while on anticoagulation DD: Subacute CVA/TIA --MRI Brain/MRA:Areas of probable subacute infarct within the left temporal and occipital lobes with areas of associated laminar necrosis versus small amount of subarachnoid hemorrhage. Subcentimeter subacute to chronic appearing bilateral subdural hematomas. No midline shift, hydrocephalus or significant mass effect. Age-related involutional changes with chronic microvascular ischemic disease. Unremarkable MRA. --MR Venography:No acute cerebral venous sinus thrombus identified. Hypoplastic versus chronically thrombosed right transverse and superior sagittal sinuses. --EEG:pending --speech eval completed -PT/OT -Appreciate Neurology Input -Continue Keppra Needs follow-up with neurology upon discharge H/O P. Afib Previously on Xarelto Resume Metoprolol as able Hypertension BP Stable Hyperlipidemia on statin Seizure disorder secondary to cerebral venous sinus thrombosis as per records Continue home meds H/O DVT Anticoagulation discontinued Prostatic cancer S/P surgery on Relugolix Prediabetes HbA1C: 21 February 2021 DVT Px: SCDs Code Status Full Code Admission and Anticipated Discharge Date Admission Date: April 05, 2021 Subjective Patient is seen and examined at bedside States having occipital headache Dizziness resolved Speech much improved Family at bedside Denies any focal weakness, chest pain, shortness of breath, abdominal pain Review of Systems Review of Systems: All systems reviewed & are unremarkable except as noted in Subjective Physical Exam Physical Exam: Physical Exam: Vitals signs as noted above General Appearance:Thin, frail, no apparent distress Head: normocephalic, Atraumatic, +Hearing Aids Eyes: normal inspection, EOMI Neck: supple, Trachea midline Respiratory/Chest: Normal breath sounds, CTA Cardiovascular: S1, S2, No murmur Abdomen/GI:Soft, Non tender, Bowel sounds present Extremities/Musculoskeletal:normal inspection, no edema Neurologic/Psych:AAOX3, grossly no focal neurological deficits Skin: normal color, warm Results & Data Results & Data ([facility]) Vital Signs (Past 12 Hours) Vital Signs Pulse Resp BP Pulse Ox 04/05/21 12:23 83 16 140/87 96 04/05/21 08:56 81 21 136/75 97 Laboratory Results Short CBC 04/04/21 04/05/21 Range/Units 19:40 05:43 WBC 5.34 5.08 (4.8-10.8) K/uL Hgb 14.7 12.7 L (14.0-18.0) g/dL Hct 44.0 38.3 L (42-52) % Plt Count 204 153 (130-400) K/uL BMP 04/04/21 04/05/21 19:40 05:43 Sodium 139 143 Potassium 4.2 3.4 L D Chloride 103 112 H Carbon Dioxide 30 25 BUN 31 H 22 H Creatinine 1.15 0.77 D Glucose 155 H 100 H Calcium 9.0 7.3 L D Liver Function 04/04/21 Range/Units 19:40 Total Bilirubin 0.7 (0.2-1) mg/dl Direct Bilirubin 0.2 (0-0.2) mg/dl AST 23 (15-37) U/L ALT 33 (12-78) U/L Alkaline Phosphatase 87 (45-117) U/L Albumin 3.4 (3.4-5.0) gm/dl Urine 04/04/21 Range/Units 20:30 Urine Color Yellow Urine Appearance Clear (Clear) Urine pH 6.5 (4.5-7.5) Ur Specific [place] 1.025 (1.000-1.030) Urine Protein Trace H (Negative) Urine Glucose (UA) Negative (Negative)
--- NOTE | 2021-04-05 21:25 | Ultrasound Report ---
ULTRASOUND OF THE CAROTID ARTERIES CLINICAL HISTORY: Stroke. COMPARISON STUDY: No priors. TECHNIQUE: Real-time, grayscale, and color Doppler sonography of the carotid arteries is performed. I mages are reviewed in the transverse and longitudinal planes. FINDINGS: Blood pressures were not assessed due to the presence of IV catheters. The carotid arteries are patent bilaterally and demonstrate antegrade flow. There is no significant a therosclerotic plaque identified. Normal doppler arterial waveforms are seen throughout. Velocity alexandr surements are listed below. Common carotid peak systolic velocity (cm/sec): RIGHT: 89 LEFT: 121 ICA proximal peak systolic velocity (cm/sec): RIGHT: 28 LEFT: 34 ICA mid peak systolic velocity (cm/sec): RIGHT: 44 LEFT: 47 ICA distal peak systolic velocity (cm/sec): RIGHT: 56 LEFT: 63 ICA/CC peak systolic ratio: RIGHT: 0.6 LEFT: 0.5 Antegrade flow was shown in the vertebral arteries. The external carotid arteries are patent. IMPRESSION: 1. There is no sonographic evidence of hemodynamically significant stenosis in the right or left valerio tid arterial system. 2. Antegrade flow is shown in the vertebral arteries. ACT 112: Negative or not required by law. Electronically signed by: Benjamin Montemayor M.D. 04/05/2021 9:24 PM
[2021-04-06 07:15] LABS: Basophils # (auto) 0.02 K/uL (0-0.2); Basophils % (auto) 0.4 %; Eosinophils # (auto) 0.23 K/uL (0-0.5); Eosinophils % (auto) 4.6 %; Hematocrit (blood only) 42.3 % (42-52); Hemoglobin 14.2 g/dL (14.0-18.0); Immature Granulocytes # (auto) 0.01 K/uL (0.00-0.02); Immature Granulocytes % (auto) 0.2 %; Lymphocytes # (auto) 0.85 K/uL (1.2-3.4); Lymphocytes % (auto) 16.9 %; Mean Corpuscular Hemoglobin 29.8 pg (25-34); Mean Corpuscular Hgb Conc 33.6 g/dL (32-36); Mean Corpuscular Volume 88.9 fL (80-100); Mean Platelet Volume 10.3 fL (7.4-10.4); Monocytes # (auto) 0.63 K/uL (0.11-0.59); Monocytes % (auto) 12.5 %; Neutrophils # (auto) 3.28 K/uL (1.4-6.5); Neutrophils % (auto) 65.4 %; Platelet Count 158 K/uL (130-400); RDW Coefficient of Variation 12.9 % (11.5-14.5); Red Blood Count 4.76 M/uL (4.7-6.1); White Blood Count 5.02 K/uL (4.8-10.8)
[2021-04-06 07:32] LABS: Potassium 4.2 mmol/L (3.5-5.1)
[2021-04-06] MEDS: levETIRAcetam 500 MG TAB PO SCH (08:04)
[2021-04-06] MEDS: ATORVASTATIN 40 MG TAB PO SCH (08:04)
[2021-04-06] MEDS: GABAPENTIN 300 MG CAP PO SCH (08:04)
[2021-04-06 08:20] LABS: BUN Creatinine Ratio 23.3 (10-20); Calcium 8.3 mg/dl (8.5-10.1); Creatinine Clr Calc Pharmacy 78.6 ml/min; Est GFR (African American) 94.7 ml/min; Est GFR (Non-African American) 81.7 ml/min; Magnesium 2.2 mg/dl (1.8-2.4)
--- NOTE | 2021-04-06 10:20 | Electroencephalogram ---
EEG Procedure Note Date of Service April 06, 2021 Start / End Times Start Time: 855 End Time: 115 Referring Physician Taylor Lvie MD History Language disturbance traumatic subarachnoid hemorrhage question focal seizure activity left hemisphere Home Medication List Medication Instructions Recorded Confirmed Type atorvastatin 40 mg tablet 40 mg PO [id number] 04/04/21 04/04/21 History calcium carbonate 600 mg (1,500 1 tab PO DAILY 04/04/21 04/04/21 History mg)-vitamin D3 200 unit tablet gabapentin 300 mg capsule 300 mg PO AMPM 04/04/21 04/04/21 History levetiracetam 1,000 mg tablet 1,000 mg PO BID 04/04/21 04/04/21 History magnesium oxide 400 mg PO DAILY 04/04/21 04/04/21 History metoprolol succinate 25 mg 25 mg PO DAILY 04/04/21 04/04/21 History tablet,extended release 24 hr relugolix 120 mg tablet 120 mg PO DAILY 04/04/21 04/04/21 History vitamin B12 0.5 mg-folic acid 1 mg 1 tab PO DAILY 04/04/21 04/04/21 History tablet Inpatient Medication List Atorvastatin Calcium (Atorvastatin 40 Mg Tab) 40 mg PO [id number] RUFINO Stop: 05/05/21 08:59 Last Admin: 04/06/21 08:04 Dose: 40 mg Documented by: [id number] Admin: 04/05/21 09:16 Dose: 40 mg Documented by: [id number] Gabapentin (Gabapentin 300 Mg Cap) 300 mg PO BID PENDING SALE TO [facility] Stop: 05/05/21 01:44 Last Admin: 04/06/21 08:04 Dose: 300 mg Documented by: [id number] Admin: 04/05/21 21:23 Dose: 300 mg Documented by: [id number] Admin: 04/05/21 09:16 Dose: 300 mg Documented by: [id number] Admin: 04/05/21 03:33 Dose: 300 mg Documented by: [id number] Levetiracetam (Levetiracetam 500 Mg Tab) 1,000 mg PO BID PENDING SALE TO [facility] Stop: 05/04/21 23:00 Last Admin: 04/06/21 08:04 Dose: 1,000 mg Documented by: [id number] Admin: 04/05/21 21:25 Dose: 1,000 mg Documented by: [id number] Admin: 04/05/21 09:16 Dose: 1,000 mg Documented by: [id number] Admin: 04/04/21 23:58 Dose: 1,000 mg Documented by: [id number] Miscellaneous (Relugolix~Order Awaiting Action) 1 ea N/A QS RUFINO Stop: 05/05/21 01:44 Last Admin: 04/06/21 09:12 Dose: Not Given Documented by: [id number] Admin: 04/06/21 00:14 Dose: Not Given Documented by: [id number] Admin: 04/05/21 14:31 Dose: Not Given Documented by: [id number] Admin: 04/05/21 09:06 Dose: Not Given Documented by: [id number] Admin: 04/05/21 03:29 Dose: Not Given Documented by: [id number] Discontinued Medications Sodium Chloride (Nss 1000ml) 1,000 mls @ 60 mls/hr IV .[id number] STA Stop: 04/05/21 13:57 Last Infusion: 04/05/21 14:31 Dose: 0 mls/hr Documented by: [id number] Admin: 04/04/21 21:35 Dose: 60 mls/hr Documented by: [id number] Potassium Chloride (Potassium Chloride Crtab 20 Meq Tabcr) 40 meq PO ONE ONE Stop: 04/05/21 07:54 Last Admin: 04/05/21 09:15 Dose: 40 meq Documented by: [id number] Description This is a 21 electrode EEG with a single channel dedicated to limited EKG. The electrodes were placed in accordance with the International 10-20 system. This EEG was done as a bedside recording and is of excellent technical quality with few or no muscle movement artifacts. Photic stimulation was performed. Drowsiness and light sleep not recorded. Under these conditions there is evidence for normal-appearing background rhythm alpha range of up to 10 Hz maximum frequency and of up to 30 V maximum amplitude. This is maximum and posterior head regions and bilaterally symmetrical. Polymorphic mid to upper frequency modest voltage theta activity is seen in a symmetrical fashion primarily over the central regions. Beta activity seen bifrontally. Photic stimulation evoked a minimal driving response No potentially epileptogenic discharges are seen Interpretation This is a normal EEG during wakefulness Clinical Correlation This EEG is normal during wakefulness and fails to reveal evidence for focal generalized encephalopathy or potentially epileptogenic activity Maikel Lopez MD
[2021-04-06] MEDS ORDERED: METOPROLOL SUCC 25MG EXT REL TAB PO SCH (10:30)
--- NOTE | 2021-04-06 14:19 | Hospitalist Progress Note ---
Date of Service April 06, 2021 Assessment & Plan (1) Expressive aphasia: Plan: Strokelike symptoms Presented with expressive aphasia Subarachnoid hemorrhage H/O Subdural hematoma secondary to fall while on anticoagulation Symptoms thought to be secondary to irritative effect of blood in the subarachnoid space as per neurology. --MRI Brain/MRA:Areas of probable subacute infarct within the left temporal and occipital lobes with areas of associated laminar necrosis versus small amount of subarachnoid hemorrhage. Subcentimeter subacute to chronic appearing bilateral subdural hematomas. No midline shift, hydrocephalus or significant mass effect. Age-related involutional changes with chronic microvascular ischemic disease. Unremarkable MRA. --MR Venography:No acute cerebral venous sinus thrombus identified. Hypoplastic versus chronically thrombosed right transverse and superior sagittal sinuses. --EEG:This EEG is normal during wakefulness and fails to reveal evidence for focal generalized encephalopathy or potentially epileptogenic activity --Neurology discussed with vascular neurology at [facility] : Diffusion-weighted abnormality was more consistent with subarachnoid hemorrhage. --speech eval completed -PT/OT: Home with Home Health -Appreciate Neurology Input -Continue [facility] Neurology recommends no changes in medications currently Recommends to get repeat CT scan in 2 weeks Needs follow-up with neurology upon discharge Updated patient's family who agrees with current management H/O P. Afib Previously on Xarelto Resume Metoprolol as able Hypertension BP Stable Hyperlipidemia on statin Seizure disorder secondary to cerebral venous sinus thrombosis as per records Continue home meds H/O DVT Anticoagulation discontinued Prostatic cancer S/P surgery on Relugolix Prediabetes HbA1C: 21 February 2021 DVT Px: SCDs Code Status Full Code Admission and Anticipated Discharge Date Admission Date: April 05, 2021 Subjective Patient is seen and examined at bedside States feeling well today Headache resolved No new complaints Discussed with neurology today Updated patient's family over the phone Denies any focal weakness, chest pain, shortness of breath, abdominal pain Review of Systems Review of Systems: All systems reviewed & are unremarkable except as noted in Subjective Physical Exam Physical Exam: Physical Exam: Vitals signs as noted above General Appearance:Thin, frail, no apparent distress Head: normocephalic, Atraumatic, +Hearing Aids Eyes: normal inspection, EOMI Neck: supple, Trachea midline Respiratory/Chest: Normal breath sounds, CTA Cardiovascular: S1, S2, No murmur Abdomen/GI:Soft, Non tender, Bowel sounds present Extremities/Musculoskeletal:normal inspection, no edema Neurologic/Psych:AAOX3, grossly no focal neurological deficits Skin: normal color, warm Results & Data Results & Data ([facility]) Vital Signs (Past 12 Hours) Vital Signs Temp Pulse Pulse Resp BP Pulse Ox 04/06/21 11:20 36.7 C 86 18 124/81 94 04/06/21 07:26 36.7 C 79 18 155/86 H 95 04/06/21 07:00 73 Laboratory Results Short CBC 04/06/21 Range/Units 06:20 WBC 5.02 (4.8-10.8) K/uL Hgb 14.2 (14.0-18.0) g/dL Hct 42.3 (42-52) % Plt Count 158 (130-400) K/uL BMP 04/06/21 06:20 Sodium 138 Potassium 4.2 D Chloride 108 H Carbon Dioxide 21 BUN 22 H Creatinine 0.93 Glucose 109 H Calcium 8.3 L
--- NOTE | 2021-04-06 16:05 | Discharge Summary ---
Date of Service April 06, 2021 Admission HPI Per Admitting Provider History obtained from patient and records. Medical history significant for hypertension, PAF currently not on anticoagulation due to recent traumatic subdural hematoma/SAH, seizure disorder secondary to cerebral venous sinus thrombosis as per records, history of DVT as per records, prostatic cancer status post surgery on Relugolix, prediabetes. Patient confined at [facility] in [place], [place] from March 24-2020 for traumatic intraparenchymal hemorrhage, left posterior parietal subarachnoid hemorrhage, left frontal parietal subdural hematoma. Patient on Eliquis for A. fib at time of injury. Patient visiting [place] that time for a football game. No neurosurgical intervention. Post injury, patient noted trouble getting words out. No arm or leg weakness as per patient. Repeat CT head recommended after 1 week. PCP may resume patient anticoagulation for A. fib if ICH stable on repeat CT head as per discharge documentation. Patient seen at PCPs office on follow-up visit 2 days ago. Outpatient Neurology referral contemplated. Today, patient had worsening trouble getting words out. Patient denies headache symptoms. No chest pain, no S OB. Patient directed to ER by PCP. Medical History as above Surgical History : Cataract surgery, cholecystostomy, prostatectomy, tonsillectomy, vasectomy Family History : Heart disease Personal/Social history : Non-smoker, occasional EtOH intake, retired fixed assets accountant Admission Exam Per Admitting Provider Physical Exam Physical Exam: GENERAL: Comfortable, pleasant, intermittent pauses during speech to find words, no respiratory distress SKIN: Normal color, warm HEENT: [place] palpebral conjunctivae, no ptosis, dry buccal mucosa NECK : Supple, no tenderness CHEST : CTA, no tenderness HEART : RRR, no obvious murmurs ABDOMEN: Some distention, nontender EXTREMITIES : No LE swelling/tenderness, no other conspicuous deformities noted NEUROLOGIC : Coherent, word finding difficulty during speech, no facial asymmetry, no other gross focality \\ Principal Diagnosis Expressive aphasia Subarachnoid hemorrhage Discharge Data Allergies Allergy/AdvReac Type Severity Reaction Status Date / Time adhesive tape Allergy Rash Unverified 04/04/21 21:05 Consultations 04/04/21 21:11 ED Decision to Admit Stat 04/05/21 00:32 Consult Neurology Routine Ordered Studies 04/04/21 20:01 CT head/brain wo con Stat 04/05/21 00:14 MR angio head wo con Routine MR brain wo con Routine 04/05/21 13:37 MR venography head wo con Routine 04/05/21 17:22 US carotid doppler BI Routine Hospital Course (1) Expressive aphasia: Strokelike symptoms Presented with expressive aphasia Subarachnoid hemorrhage H/O Subdural hematoma secondary to fall while on anticoagulation Symptoms thought to be secondary to irritative effect of blood in the subarachnoid space as per neurology. --MRI Brain/MRA:Areas of probable subacute infarct within the left temporal and occipital lobes with areas of associated laminar necrosis versus small amount of subarachnoid hemorrhage. Subcentimeter subacute to chronic appearing bilateral subdural hematomas. No midline shift, hydrocephalus or significant mass effect. Age-related involutional changes with chronic microvascular ischemic disease. Unremarkable MRA. --MR Venography:No acute cerebral venous sinus thrombus identified. Hypoplastic versus chronically thrombosed right transverse and superior sagittal sinuses. --EEG:This EEG is normal during wakefulness and fails to reveal evidence for focal generalized encephalopathy or potentially epileptogenic activity --Neurology discussed with vascular neurology at [facility] : Diffusion-weighted abnormality was more consistent with subarachnoid hemorrhage. --speech eval completed -PT/OT: Home with Home Health -Appreciate Neurology Input -Continue [facility] Neurology recommends no changes in medications currently Recommends to get repeat CT scan in 2 weeks Needs follow-up with neurology upon discharge Updated patient's family who agrees with current management H/O P. Afib Previously on Xarelto Resume Metoprolol as able Hypertension BP Stable Hyperlipidemia on statin Seizure disorder secondary to cerebral venous sinus thrombosis as per records Continue home meds H/O DVT Anticoagulation discontinued Prostatic cancer S/P surgery on Relugolix Prediabetes HbA1C: 21 February 2021 DVT Px: SCDs Code Status Full Code I certify that this patient is under my care and that I, or a physicians operations manager assistant working with me, had a face to-face encounter that meets the home health [id number] encounter requirements with this patient. The encounter with the patient was in whole, or in part, for the following medical condition, which is the primary reason for home health care (list medical condition): I certify that, based on my findings, the following services are medically necessary home health services: My clinical findings support the need for the above services because: Further, I certify that my clinical findings support that this patient is homebound (i.e. absences from home require considerable and taxing effort and are for medical reasons or sikh services or infrequently or of short duration when for other reasons) because: Certification for Home Health Services: Based on the above findings, I certify that this patient is confined to the home and needs intermittent nursing home care, physical therapy and/or speech therapy or continues to need occupational therapy. The patient is under my care, and I have initiated the establishment of the plan of care. This patient will be followed by a physician who will periodically review the plan of care. Total Time Total Time Spent Total Time Spent (In Minutes): 50 minutes Discharge Plan Discharge Items Patient Disposition: Home - Home Health Services Reason For Visit: APHASIA Discharge Diagnosis: Expressive aphasia Subarachnoid hemorrhage Activity: Per Instructions section Exercise/Sports: Wait until after follow-up appointment Non-emergency contact: Primary Care Provider and Neurologist Call non-emergency contact if: you have any medication questions, your symptoms worsen, your pain is concerning for you and you have a fever Follow-up/Referrals: Deni Borjas MD [Physician] - (Date & Time 04/11/2021 11:00 AM Provider Anisha Marcano MD Department General Internal Medicine [facility] ) Taylor Live MD [Primary Care Provider] - (Date & Time 06/01/2021 11:20 AM Provider Taylor Bellamy PA-C Department Neurology [facility] ) Diet: Heart Healthy Addtl Attending Provider Instructions: Follow up with your primary care physician on 04/11/2021 11:00 AM Follow-up with your neurologist Dr. Taylor Live on 06/01/2021 11:20 AM ----Get repeat CT head in 2 weeks and follow up with your neurologist as recommended. Seek immediate medical attention if your symptoms reoccur or worsen Please take all medications as instructed on discharge list below. Please call if you have any questions or problems. You can reach a [facility] hospitalist on duty at [facility] 24 hours a day by calling [phone] Risk Factors for Stroke: You can reduce your chances of stroke by working with your medical provider to adopt a healthy lifestyle. Some specific ways to lower your chance of stroke are: * If you are a smoker, now is the time to stop smoking cigarettes * If you are diabetic, improve the control of your blood sugars * Avoid excessive amounts of alcohol * Control high blood pressure * Lose weight if you are overweight * Be sure to lead an active lifestyle * Eat a healthy diet low in salt, cholesterol and fat You should know about other risk factors for stroke that you are unable to control. These include: * Age 55 years or older * Male gender * Certain racial groups: , or / * Family History of Stroke, Mini stroke or Heart Attack * Sickle Cell Disease Follow Up: It is important for you to keep your follow up appointments with your medical provider. Who to Call and When: Medical Emergencies: Call 911 immediately if you experience any of the following warning signs and symptoms of Stroke: * Sudden numbness or weakness of the face, arm or leg, especially on one side of the body * Sudden confusion, trouble speaking or understanding * Sudden trouble seeing in one or both eyes * Sudden trouble walking, dizziness, loss of balance or coordination * Sudden severe headache with no cause Do not delay calling 911 if you experience any warning signs or symptoms of a stroke. Delay in seeking medical attention may affect what treatments can be given to you. . Pending Studies at Discharge: No Stand-Alone Forms: My [facility], Smoking Cessation Medications and DC Order Prescriptions: Continued atorvastatin 40 mg tablet 40 mg PO 5XWK RF: 0 levetiracetam 1,000 mg tablet 1,000 mg PO BID RF: 0 gabapentin 300 mg capsule 300 mg PO AMPM RF: 0 magnesium oxide 400 mg magnesium tablet 400 mg PO DAILY RF: 0 metoprolol succinate 25 mg tablet extended release 24 hr 25 mg PO DAILY RF: 0 vitamin A97-oofft acid 0.5-1 mg Tablet 1 tab PO DAILY RF: 0 relugolix 120 mg Tablet 120 mg PO DAILY RF: 0 calcium carbonate-vitamin D3 600 mg(1,500mg) -200 unit Tablet 1 tab PO DAILY RF: 0 Discharge Orders: Discharge Order (Routine); Ordered 04/06/21 Ordered By: Kieran Wilkes Admission Data Admit Date/Time: 04/05/21 11:34 Attending Provider: Kieran Wilkes Admit Provider: Kale Singletary Primary Care Provider: Taylor Live Other Providers: Kale Singletary ; Taylor Live Other Interventions: Discharge Summary Assessment (RN) Last Done: 04/06/21 15:20
== END 2021-04-06 17:26 | disposition home health service (06) | DRG 93 ==
LOC: ED 19:09 → EDINP 19:09 → 2N 04-05 00:06